=== PATIENT | male | born 1965 | race Hispanic/Latino ===

== ENCOUNTER 2016-11-19 07:40 | Day surgery (SDC) | payer MEDICARE ==
[~2016-11-19 07:40] MED LIST: ANCEF/STERILE WATER 2 GM/20 ML 2 GM/20 ML SYRINGE IV NR; NACL 0.9% 1000 ML 1,000 ML ONE; NACL BACTERIOSTATIC INFILTRATI ONE
[2016-11-19] MEDS ORDERED: HEPARIN 10,000 UNITS/10 ML ONE (08:05)
[2016-11-19] MEDS ORDERED: MARCAINE 0.5% INFILTRATI ONE ×3 (08:05→09:37)
[2016-11-19] MEDS ORDERED: XYLOCAINE 1%/ EPI 1:100,000 INFILTRATI ONE (08:05)
[2016-11-19] MEDS ORDERED: NACL 0.9% 1000 ML 1,000 ML ONE (08:05)
[2016-11-19] MEDS ORDERED: NACL 0.9% 500 ML 500 ML ONE (08:05)
[2016-11-19] MEDS ORDERED: PROTAMINE SULFATE ONE (08:06)
[2016-11-19] MEDS ORDERED: SODIUM BICARBONATE ONE (08:06)
[2016-11-19] MEDS ORDERED: NITROGLYCERIN SYRINGE 6 ML ONE (08:06)
--- NOTE | 2016-11-19 08:13 | Anesthesia Consultation ---
Anesthesia Consult and Med Hx Date of service: 11/19/16 - Airway Anesthetic Teeth Evaluation: Poor ROM Head & Neck: Adequate Mental/Hyoid Distance: Adequate Mallampati Class: Class I Intubation Access Assessment: Good - Pulmonary Exam CTA: Yes - Cardiac Exam Cardiac Exam: RRR - Pre-Operative Health Status ASA Pre-Surgery Classification: ASA4 Proposed Anesthetic Plan: General - Pulmonary Hx Sleep Apnea: Yes (15 YRS AGO HAD SURGERY NO LONGER NEEDS CPAP) - Cardiovascular System Hx Hypertension: Yes (20YRS) - Endocrine Hx End Stage Renal Disease: Yes Hx Hypothyroidism: Yes (10 YRS) - Other Systems Hx Obesity: Yes (BMI>40) - Additional Comments Anesthesia Medical History Comments: One kidney removed, other is low functioning. No previous anesthesia complications. Poor dentition.
[2016-11-19] MEDS ORDERED: DIPRIVAN 10 MG/ML IV ONE (08:16)
[2016-11-19] MEDS ORDERED: ROBINUL ONE ×2 (08:17→10:11)
[2016-11-19] MEDS ORDERED: XYLOCAINE MPF 2% ONE (08:17)
[2016-11-19] MEDS ORDERED: DILAUDID ONE ×2 (08:17→09:20)
[2016-11-19] MEDS ORDERED: ZOFRAN ONE (08:17)
[2016-11-19] MEDS ORDERED: DECADRON ONE (08:17)
--- NOTE | 2016-11-19 08:17 | Anesthesia Day of Surgery ---
Anesthesia Day of Surgery - Day of Surgery Patient Examined: Yes Patient H&P Reviewed: Yes Patient is NPO: Yes
[2016-11-19] MEDS ORDERED: VERSED IV PRN (08:18)
[2016-11-19] MEDS ORDERED: HEPARIN 10,000 UNITS/10 ML 2,000 UNIT in NACL 0.9% 500 ML 500 ML IR ONE (08:49)
[2016-11-19] MEDS ORDERED: PEPCID IV NR (09:00)
[2016-11-19] MEDS ORDERED: NACL 0.9% 1000 ML 1,000 ML IV SCH (09:00)
[2016-11-19] MEDS ORDERED: VERSED IV ONE (09:19)
[2016-11-19] MEDS ORDERED: ZEMURON IV ONE (09:28)
[2016-11-19] MEDS ORDERED: NACL 0.9% IR ONE (09:37)
[2016-11-19] MEDS ORDERED: NEO SYNEPHRINE ONE (09:48)
[2016-11-19] MEDS ORDERED: NACL 0.9% 100 ML ONE (09:48)
--- NOTE | 2016-11-19 10:08 | Short Stay Summary ---
Short Stay Documentation Date of service: 11/19/16 Narrative H&P: See H&P - History H&P: obtained from office - Allergies and Medications Current Medications: Allergies Sulfa (Sulfonamide Antibiotics) Allergy (Verified 11/18/16 09:43) Rash Home Medications Medication Instructions Recorded Confirmed Last Taken Type Allopurinol [Zyloprim] 100 mg PO QDAY 11/18/16 11/19/16 11/17/16 08:00 History Aspirin [Adult Low Dose Aspirin EC] 81 mg PO QDAY 11/18/16 11/19/16 11/18/16 20: 00 History AtorvaSTATin [Lipitor] 20 mg PO QDAY 11/18/16 11/19/16 11/18/16 20:00 History Cholecalciferol (Vitamin D3) 5,000 unit PO QDAY 11/18/16 11/19/16 11/18/16 08: 00 History [Vitamin D3] Furosemide [Lasix] 20 mg PO QDAY 11/18/16 11/19/16 11/18/16 08:00 History Insulin Lispro Prot/Lispro 60 unit SQ BID 11/18/16 11/19/16 11/18/16 20:00 History [HumaLOG MIX 75/25] Levothyroxine [Synthroid] 200 mcg PO QAM 11/18/16 11/19/16 11/18/16 08:00 History Lisinopril [Zestril TAB] 30 mg PO QDAY 11/18/16 11/19/16 11/19/16 05:00 History Loratadine [Claritin] 10 mg PO DAILY 11/18/16 11/18/16 Unknown History Toujeo Solostar 50 units SUB-Q DAILY 11/19/16 11/19/16 11/18/16 20:00 History Active Medications Famotidine (Pepcid) 20 mg IV PREOP NR Stop: 11/19/16 23:59 Last Admin: 11/19/16 08:41 Dose: 20 mg Cefazolin Sodium (Ancef/Sterile Water 2 Gm/20 Ml) 2 gm in 20 mls @ 80 mls/hr IV PREOP NR PRN Reason: Protocol Stop: 11/19/16 23:59 Sodium Chloride (Nacl 0.9% 1000 Ml) 1,000 mls @ 42 mls/hr IV DIRECT GLADYS Stop: 11/19/16 23:59 Last Admin: 11/19/16 08:20 Dose: 42 mls/hr Midazolam HCl (Versed) 2 mg IV PREOP PRN PRN Reason: Agitation Stop: 11/19/16 23:59 Last Admin: 11/19/16 08:43 Dose: 2 mg - Brief post op/procedure progress note Date of procedure: 11/19/16 Pre-op diagnosis: Chronic Renal Failure Post-op diagnosis: same Procedure: Creation of Left Emmett Fistula Anesthesia: GETA Surgeon: RUBY CHIN Estimated blood loss: none Pathology: none Condition: stable - Disposition Condition at discharge: Good Disposition: DISCHARGED TO HOME OR SELFCARE Short Stay Discharge Plan Activity: other (No heavy lifting with left arm) Wound: open to air, keep clean and dry, other (Okay to wash the wound with soap and water but do not soak in water) Follow up with: RUBY CHIN MD [Staff Physician] - 14 Days Prescriptions: HYDROcodone/APAP 7.5-325 [[place] 7.5/325] 1 each PO Q6HR PRN #50 tablet PRN Reason: Pain
[2016-11-19] MEDS ORDERED: NEOSTIGMINE ONE (10:11)
--- NOTE | 2016-11-19 10:11 | Operative Report ---
Operative Report Operative Report: Date of procedure: 11/19/2016 Pre-operative diagnosis: Chronic Renal Insufficiency Post-operative diagnosis: Same Procedure(s): Creation of Left Emmett Fistula Surgeon: Evens Ortega MD Concrete Crusher Loader Operator: None Anesthesia: General Endotracheal Anesthesia EBL: Minimal Counts: Correct Complications: None Condition: Stable Findings: Successful creation of left arm AV fistula Specimen: None Indication: The patient is a 50-year-old male with a history of chronic renal insufficiency not yet on dialysis. He is in need of long-term dialysis access to avoid the placement of a catheter. His vein size and demonstrated he was adequate candidate for fistula creation. He was given the risks, benefits, and alternative procedures and consented to procedure. Description of Procedure: The patient was brought to the operating room and laid in supine position after general endotracheal anesthesia was achieved his left arm was prepped and draped in normal sterile fashion. Longitudinal incision was then created on the distal wrist centered over the cephalic vein and a second incision was created in longitudinal fashion over the radial artery. The radial artery was dissected out circumferentially and controlled with vessel loops. The cephalic vein was then dissected out circumferentially, ligating side branches and dividing them, and then a tunnel was created to transpose it over to the radial artery. A 3 Arcelia was then advanced through the cephalic vein proximally to ensure patency. The vein was then flushed with heparinized saline and control of the bulldog clamp. The radial artery vessel loops were put on tension occluding flow, and then an 11 blade and Cannon scissors used to create an arteriotomy. An end-to-side anastomosis created between the cephalic vein and the radial artery using a single 6-0 Prolene in running fashion. Prior to completing the anastomosis I flushed the artery both retrograde and antegrade and advanced a 3 Arcelia into the proximal portion of the artery to break the spasm. I then completed the anastomosis and removed all clamps allowing flow into the fistula which had an excellent thrill. The necessity wound using half percent Marcaine plain. Then closed the wounds in 2 layers using a 3-0 Vicryl running fashion the deep dermal layer, 4-0 Monocryl in a running fashion the subcuticular layer, and Surgicel as a dressing. The patient tolerated the procedure well, all sponge needle asthma counts correct, the patient was taken to recovery in stable condition.
--- NOTE | 2016-11-19 11:18 | Post Anesthesia Evaluation ---
- Post Anesthesia Evaluation Patient Participated: Yes Airway Patent: Yes Stable Respiratory Function: Yes Nausea/Vomiting: No Temp > 96.8F: Yes Pain Manageable: Yes Adequeate Hydration: Yes Anesthesia Complications: No
[2016-11-19 12:55] VITALS: BP 132/80
== END 2016-11-19 12:49 | disposition home or self-care (01) ==
LOC: OR 07:40
PROVIDERS: ATTEND Surgery Vascular Surgery
DX: I12.0 Hypertensive chronic kidney disease with stage 5 chronic kidney disease or end stage renal disease (principal); N18.6 End stage renal disease; E03.9 Hypothyroidism, unspecified; E66.9 Obesity, unspecified; Z68.41 Body mass index [BMI] 40.0-44.9, adult; Z90.5 Acquired absence of kidney; Z79.899 Other long term (current) drug therapy
CPT/HCPCS: 36415; 36821; 82962; 84132; C1757; J0690; J1170; J1644; J2250; J2370; J2405; J2704; J2710; J2720; J7030; J7040; J1100; J1815

== ENCOUNTER 2021-01-05 11:26 | Day surgery (SDC) | payer MEDICARE ==
[2021-01-05 13:16] LABS: Hematocrit 33.8 % (35.5-45.6); Hemoglobin 11.8 gm/dl (11.8-15.2); Mean Corpuscular HGB Conc 35 % (32-34); Mean Corpuscular Volume 102 fl (84-94); Platelet Count 242 K/mm3 (140-440); Red Blood Count 3.32 M/mm3 (3.65-5.03); Red Cell Distribution Width 13.3 % (13.2-15.2)
[2021-01-05 13:33] LABS: INR 0.89 (0.87-1.13); Partial Thromboplastin Time 26.2 Sec. (24.2-36.6)
[2021-01-05] MEDS ORDERED: SODIUM CHLORIDE 0.9% 500 ML 500 ML IV SCH (14:00)
[2021-01-05 15:39] LABS: Calcium 11.2 mg/dL (8.4-10.2)
[2021-01-05] MEDS ORDERED: MIDAZOLAM 2 MG/2 ML INJ ONE (16:43)
[2021-01-05] MEDS ORDERED: HEPARIN/NS 5000 UNIT/500ML 1,500 ML IR ONE (16:44)
[2021-01-05] MEDS ORDERED: HEPARIN 10,000 UNITS/10 ML VIAL ONE (16:44)
[2021-01-05] MEDS ORDERED: fentaNYL 100 MCG/2 ML INJ ONE (16:44)
[2021-01-05] MEDS ORDERED: SODIUM CHLORIDE 0.9% 500 ML 0 ML ONE (16:45)
[2021-01-05] MEDS ORDERED: LIDOCAINE (2%) 20 MG/1 ML VIAL 20 ML MDV INFILTRATI ONE (16:45)
[2021-01-05] MEDS ORDERED: SODIUM CHLORIDE 0.9% 500 ML 500 ML ONE (17:03)
[2021-01-05] MEDS ORDERED: ceFAZolin/Water 2 GM/20 ML 2 GM/20 ML SYRINGE IV ONE (17:24)
--- NOTE | 2021-01-05 17:49 | Short Stay Summary ---
Short Stay Documentation Date of service: 01/05/21 Narrative H&P: The patient is a 55-year-old male with a history of end-stage renal disease who is on hemodialysis through a left brachiocephalic arteriovenous fistula. He presents with complaints of pulling clots while on dialysis. He has no additional complaints at this time. He is in need of a diagnostic fistulogram with possible intervention. He has been given the risk, benefits, and alternative procedures and consented to the procedure. - History Past Medical History: diabetes, dialysis, ESRD, hypertension, hyperlipidemia, PVD Past Surgical History: Other (Creation of left brachiocephalic arteriovenous fistula, endovascular intervention of peripheral vascular disease) Social history: , lives with family - Allergies and Medications Current Medications: Allergies Sulfa (Sulfonamide Antibiotics) Allergy (Verified 11/18/16 09:43) Rash Home Medications Medication Instructions Recorded Confirmed Last Taken Type Aspirin [Adult Low Dose Aspirin EC] 162 mg PO QDAY 11/18/16 01/05/21 1 Day Ago History ~01/04/21 Insulin Lispro Prot/Lispro 30 unit SQ BID 11/18/16 01/05/21 1 Day Ago History [HumaLOG Mix 75/25 Vial] ~01/04/21 Levothyroxine (Nf) [Synthroid (Nf)] 200 mcg PO QAM 11/18/16 01/05/21 1 Day Ago History ~01/04/21 200 mcg HYDROcodone/APAP 7.5-325 [[place] 1 each PO Q6HR PRN #50 tablet 11/19/16 01/05/21 Unknown Rx 7.5/325] Toujeo Solostar 45 units SUB-Q BIDAC 11/19/16 01/05/21 1 Day Ago History ~01/04/21 Gabapentin [Neurontin] 300 mg PO BID 01/05/21 01/05/21 1 Day Ago History ~01/04/21 Losartan [Cozaar] 100 mg PO QDAY 01/05/21 01/05/21 1 Day Ago History ~01/04/21 Sevelamer Carbonate [Renvela] 800 mg PO TIDWM 01/05/21 01/05/21 1 Day Ago History ~01/04/21 amLODIPine [Norvasc] 5 mg PO DAILY 01/05/21 01/05/21 1 Day Ago History ~01/04/21 Active Medications Sodium Chloride (Nacl 0.9% 500 Ml) 500 mls @ 50 mls/hr IV DIRECT GLADYS - Physical exam General appearance: no acute distress Lungs: Normal air movement Breasts: deferred Heart: Regular rate Male Genitourinary: deferred Rectal Exam: deferred Extremities: no ischemia, abnormal (Left arm AV fistula with palpable thrill) - Brief post op/procedure progress note Date of procedure: 01/12/21 Pre-op diagnosis: Complications of Dialysis Access Post-op diagnosis: same Procedure: 1. Access Left Arm AV Fistula with 7 Mongolian Sheath Venous 2. Diagnostic Fistulogram with Central Venogram 3. Angioplasty of Left Arm AV Fistula with 9 x 40 EverCross Balloon 4. Radiologic Supervision with Interpretation 5. Monitored Moderate Sedation (Total Anesthesia Time: 15 Minutes) Anesthesia: local, other (Monitored Moderate Sedation) Surgeon: RUBY CHIN Estimated blood loss: minimal Pathology: none Condition: stable - Disposition Condition at discharge: Good Disposition: DC-01 TO HOME OR SELFCARE Short Stay Discharge Plan Activity: other (Okay to use fistula for dialysis during next session) Wound: remove dressing (During next dialysis session), other (Remove the sutures by pulling the longer of the 2 strings during your next dialysis session.)
--- NOTE | 2021-01-05 17:55 | Operative Report ---
Operative Report Operative Report: Date of Procedure: 01/05/2021 Pre-operative Diagnosis: Complications of Dialysis Access Post-operative Diagnosis: Same Procedure(s): 1. Access Left Arm AV Fistula with 7 [place] African Sheath Venous 2. Diagnostic Fistulogram with Central Venogram 3. Angioplasty of Left Arm AV Fistula with 9 x 40 EverCross Balloon 4. Radiologic Supervision with Interpretation 5. Monitored Moderate Sedation (Total Anesthesia Time: 15 Minutes) Surgeon: Evens Ortega M.D. Car Seat Upholsterer: None Anesthesia: Monitored Moderate Sedation Total Anesthesia Time: 15 Minutes EBL: Minimal Counts: Correct Complications: None Condition: Stable Specimen: None Indication: The patient is a 55-year-old male with a history of end-stage renal disease who is currently on hemodialysis through a left brachiocephalic arteriovenous fistula. He presented with complaints of pulling clots from dialysis and is in need of a diagnostic fistulogram with possible intervention. He has been given the risk, benefits, and alternative procedures and consented to the procedure. Angiographic Findings: The diagnostic fistulogram revealed that the cannulation area of the fistula was patent without evidence of flow-limiting stenosis. The arterial inflow and cannulation zone is diffusely dilated without pseudoaneurysm formation. There is a short segment 75% stenosis in the cephalic arch just proximal to a stent that was previously placed. The stent was patent without significant flow- limiting stenosis. The central venous system was patent without evidence of flow-limiting stenosis. After intervention there was less than 15% residual stenosis. Description of Procedure: The patient was brought to the Ground Surveillance Systems Operator and laid in supine position. After timeout was performed his left arm was prepped and draped in normal sterile fashion. Lidocaine was used to anesthetize the skin and soft tissue overlying the fistula near the arterial inflow and a 21-gauge micropuncture needle was used to access the fistula towards the venous outflow. A 0.018 micropuncture wire was advanced to the fistula and after removing the needle a 7 [place] sheath was placed by Seldinger technique. A diagnostic fistulogram with central venogram was performed with the previously described findings. A 0.035 Bentson wire was advanced into the central venous system and angioplasty of the stenosis within the cephalic arch was performed with a 9 x 40 EverCross Balloon with a result of less than 15% residual stenosis. At that point the balloon and wire w ere removed and a 2-0 Ethilon in slipknot fashion was used to close the entry site after removing the sheath. A sterile dressing was then applied to the entry site and the patient was transported to the recovery area in stable condition.
[2021-01-05 19:11] VITALS: BP 131/74
== END 2021-01-05 19:05 | disposition home or self-care (01) ==
LOC: CATH 11:26 → CATHLABREC 11:26
PROVIDERS: ATTEND Surgery Vascular Surgery
DX: T82.898A Other specified complication of vascular prosthetic devices, implants and grafts, initial encounter (principal); T82.858A Stenosis of other vascular prosthetic devices, implants and grafts, initial encounter; I12.0 Hypertensive chronic kidney disease with stage 5 chronic kidney disease or end stage renal disease; E11.22 Type 2 diabetes mellitus with diabetic chronic kidney disease; N18.6 End stage renal disease; E78.5 Hyperlipidemia, unspecified; E11.51 Type 2 diabetes mellitus with diabetic peripheral angiopathy without gangrene; E03.9 Hypothyroidism, unspecified; G47.30 Sleep apnea, unspecified; E66.9 Obesity, unspecified; Z87.442 Personal history of urinary calculi; Z90.5 Acquired absence of kidney; Z98.890 Other specified postprocedural states; Z68.41 Body mass index [BMI] 40.0-44.9, adult; Y83.8 Other surgical procedures as the cause of abnormal reaction of the patient, or of later complication, without mention of misadventure at the time of the procedure; Y92.89 Other specified places as the place of occurrence of the external cause
CPT/HCPCS: 36415; 36902; 80048; 85027; 85610; 85730; 99156; C1725; C1751; C1769; C1894; J0690; J1644; J2250; J3010; J7040; Q9967

== ENCOUNTER 2021-08-22 06:05 | Day surgery (SDC) | payer MEDICARE ==
[~2021-08-22 06:05] MED LIST changes: -ANCEF/STERILE WATER 2 GM/20 ML 2 GM/20 ML SYRINGE IV NR; +MIDAZOLAM 2 MG/2 ML INJ IV NR; -NACL 0.9% 1000 ML 1,000 ML ONE; -NACL BACTERIOSTATIC INFILTRATI ONE; +SODIUM CHLORIDE 0.9% 1000 ML 1,000 ML IV SCH; +ceFAZolin/STERILE WATER 2 GM/20 ML SYRINGE IV NR
[2021-08-22 07:00] LABS: Calcium 8.5 mg/dL (8.4-10.2)
[2021-08-22] MEDS ORDERED: HEPARIN 10,000 UNITS/10 ML VIAL ONE (07:13)
[2021-08-22] MEDS ORDERED: BUPIVACAINE/PF (0.5%) 5 MG/1 ML 30 ML VIAL INFILTRATI ONE ×2 (07:13→10:29)
[2021-08-22] MEDS ORDERED: LIDOCAINE (1%) 10 MG/1 ML VIAL 20 ML MDV ONE (07:13)
[2021-08-22] MEDS ORDERED: SODIUM CHLORIDE 0.9% 500 ML 500 ML ONE (07:14)
[2021-08-22] MEDS ORDERED: rifAMPin 600 MG VIAL ONE (07:14)
[2021-08-22] MEDS ORDERED: SODIUM CHLORIDE 0.9% 250ML 250 ML ONE (07:14)
[2021-08-22] MEDS ORDERED: HEPARIN 5,000 UNIT/1 ML VIAL ONE (07:26)
[2021-08-22 07:31] LABS: Hematocrit 40.5 % (35.5-45.6); Hemoglobin 13.1 gm/dl (11.8-15.2); Mean Corpuscular HGB Conc 32 % (32-34); Mean Corpuscular Volume 97 fl (84-94); Platelet Count 200 K/mm3 (140-440); Red Blood Count 4.19 M/mm3 (3.65-5.03)
[2021-08-22] MEDS ORDERED: ONDANSETRON 4 MG/2 ML INJ IV PRN (07:32)
[2021-08-22] MEDS ORDERED: fentaNYL 100 MCG/2 ML INJ IV PRN (07:32)
--- NOTE | 2021-08-22 07:32 | Anesthesia Day of Surgery ---
Anesthesia Day of Surgery - Day of Surgery Patient Examined: Yes Patient H&P Reviewed: Yes Patient is NPO: Yes Beta Blockers: Yes
--- NOTE | 2021-08-22 07:32 | Anesthesia Consultation ---
Anesthesia Consult and Med Hx Date of service: 08/22/21 - Airway Anesthetic Teeth Evaluation: Good ROM Head & Neck: Adequate Mental/Hyoid Distance: Adequate Mallampati Class: Class III Intubation Access Assessment: Possibly Difficult (Previous LMA 5) - Pre-Operative Health Status ASA Pre-Surgery Classification: ASA3 Proposed Anesthetic Plan: General - Pulmonary Hx Smoking: No Hx Respiratory Symptoms: Yes (COVID+ 1/14 with mild cough) Hx Sleep Apnea: Yes (s/p surgery; no longer uses CPAP) - Cardiovascular System Hx Hypertension: Yes (took antihypertensives last night) Hx Heart Attack/AMI: No Hx Percutaneous Transluminal Coronary Angioplasty (PTCA): No Hx Peripheral Vascular Disease: Yes (last ASA/plavix 08/21/21) - Central Nervous System CVA: No - Endocrine Hx End Stage Renal Disease: Yes (last HD 08/21/21) Hx Liver Disease: No Hx Insulin Dependent Diabetes: Yes Hx Hypothyroidism: Yes - Hematic Hx Anemia: Yes - Other Systems Hx Obesity: Yes (BMI>40) - Additional Comments Anesthesia Medical History Comments: No hx anesthetic complications.
[2021-08-22] MEDS ORDERED: propofoL 200 MG/20 ML VIAL IV ONE (08:07)
[2021-08-22] MEDS ORDERED: HYDROmorphone 1 MG/1 ML INJ ONE (08:07)
[2021-08-22] MEDS ORDERED: LIDOCAINE MPF (2%) 20 MG/1 ML VIAL 5 ML ONE (08:09)
[2021-08-22] MEDS ORDERED: SODIUM CHLORIDE 0.9% 500 ML IVPB IV ONE (09:03)
[2021-08-22] MEDS ORDERED: SODIUM CHLORIDE 0.9% IRR 1,500 ML BOTTLE IR ONE (09:03)
[2021-08-22] MEDS ORDERED: HEPARIN 10,000 UNITS/10 ML VIAL IV ONE (09:03)
[2021-08-22] MEDS ORDERED: rifAMPin 600 MG VIAL IV ONE (09:03)
[2021-08-22] MEDS ORDERED: SODIUM CHLORIDE 0.9% 250 ML IVPB IV ONE (09:03)
[2021-08-22] MEDS ORDERED: HEPARIN 5,000 UNIT/1 ML VIAL SUB-Q ONE (11:15)
[2021-08-22] MEDS ORDERED: ONDANSETRON 4 MG/2 ML INJ ONE (11:15)
--- NOTE | 2021-08-22 11:42 | Short Stay Summary ---
Short Stay Documentation Date of service: 08/22/21 Narrative H&P: See H&P - History H&P: obtained from office - Allergies and Medications Current Medications: Allergies Sulfa (Sulfonamide Antibiotics) Allergy (Verified 07/30/21 16:39) Rash Home Medications Medication Instructions Recorded Confirmed Last Taken Type Aspirin [Adult Low Dose Aspirin EC] 81 mg PO QDAY 11/18/16 08/22/21 08/21/21 19:00 History Insulin Lispro Prot/Lispro 0 unit SQ PRN PRN 11/18/16 07/30/21 1 Day Ago History [HumaLOG Mix 75/25 Vial] ~01/04/21 Levothyroxine (Nf) [Synthroid (Nf)] 200 mcg PO QAM 11/18/16 08/22/21 08/21/21 19:00 History Touhectoro Solostar 45 units SUB-Q HS 11/19/16 08/22/21 08/21/21 19:00 History Gabapentin 300 mg PO BID 01/05/21 08/22/21 08/21/21 19:00 History Losartan [Cozaar] 100 mg PO QDAY 01/05/21 08/22/21 08/21/21 19:00 History Sevelamer Carbonate [Renvela] 800 mg PO TIDWM 01/05/21 08/22/21 08/21/21 19:00 History amLODIPine 5 mg PO DAILY 01/05/21 08/22/21 08/21/21 19:00 History Clopidogrel [Plavix] 75 mg PO HS 07/30/21 08/22/21 08/21/21 19:00 History Ferric Citrate (Nf) [Auryxia] 210 mg PO TIDWM 07/30/21 08/22/21 08/21/21 19:00 History traMADoL [Ultram] 100 mg PO BID PRN 07/30/21 07/30/21 Unknown History Active Medications Fentanyl (Fentanyl 100 Mcg/2 Ml Inj) 50 mcg IV Q5MIN PRN PRN Reason: Pain , Severe (7-10) Stop: 08/22/21 20:00 Sodium Chloride (Nacl 0.9% 1000 Ml) 1,000 mls @ 42 mls/hr IV DIRECT GLADYS Stop: 08/22/21 23:59 Last Admin: 08/22/21 08:00 Dose: 42 mls/hr Midazolam HCl (Midazolam 2 Mg/2 Ml Inj) 2 mg IV PREOP NR Stop: 08/22/21 23:00 Ondansetron HCl (Ondansetron 4 Mg/2 Ml Inj) 4 mg IV ONCE PRN PRN Reason: Nausea And Vomiting Stop: 08/22/21 12:00 - Brief post op/procedure progress note Date of procedure: 08/22/21 Pre-op diagnosis: Complications of Dialysis Access Post-op diagnosis: same Procedure: 1. Ligation of Left Brachiocephalic Arteriovenous Fistula 2. Creation of Left Brachial Artery to Left Axillary Vein Arteriovenous Graft with 7 mm Bovine Artegraft 3. Ultrasound-Guided Access Right Internal Jugular Vein 4. Placement of 23 cm Bard Glidepath Permacath 5. Radiologic Supervision with Interpretation Anesthesia: ALEX Surgeon: RUBY CHIN Estimated blood loss: 50-100ml Pathology: none Condition: stable - Disposition Condition at discharge: Good Disposition: 01 HOME / SELF CARE / HOMELESS Short Stay Discharge Plan Activity: other (No heavy lifting with left arm for 2 weeks.) Wound: open to air, keep clean and dry, other (Okay to wash the left arm wounds with soap and water but do not soak in water for 2 weeks.) Follow up with: RUBY CHIN MD [Staff Physician] - 14 Days Prescriptions: HYDROcodone/APAP 7.5-325 [[place] 7.5/325] 1 each PO Q6HR PRN #30 tablet PRN Reason: Pain
--- NOTE | 2021-08-22 11:59 | Operative Report ---
Operative Report Operative Report: Date of Procedure: 08/22/2021 Pre-operative Diagnosis: Complications of Dialysis Access Post-operative Diagnosis: Same Procedure(s): 1. Ligation of Left Brachiocephalic Arteriovenous Fistula 2. Creation of Left Brachial Artery to Left Axillary Vein Arteriovenous Graft with 7 mm Bovine Artegraft 3. Ultrasound-Guided Access Right Internal Jugular Vein 4. Placement of 23 cm Bard Glidepath Permacath 5. Radiologic Supervision with Interpretation Surgeon: Evens Ortega M.D. Commodities Clerk: None Anesthesia: General Endotracheal Anesthesia EBL: 100 mL Counts: Correct Complications: None Condition: Stable Findings: The left arm arteriovenous graft had a palpable thrill at the completion of the case. The permacath was placed with the distal tip in the right atrium and no evidence of pneumothorax at the completion of the case. Specimen: None Indication: The patient is a 55-year-old male with a history of end-stage renal disease who was on hemodialysis through a left brachiocephalic arteriovenous fistula. 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 It is believed that the fistula may be causing high-output cardiac failure. He is in need of revision of the fistula with ligation and creation of a graft. Description of Procedure: The patient was brought to the operating room and laid in supine position. After timeout was performed his left arm was prepped and draped in normal sterile fashion. A transverse incision was created over the arterial anastomosis, of his arteriovenous fistula, and carried down to the arterial inflow of the fistula using sharp dissection. This portion of the fistula was dissected circumferentially controlled with a vessel loop. I made a longitudinal incision near the axillary crease a sharp dissection carried this down to the axillary vein. I dissected it circumferentially controlled with a vessel loop. I then created a transverse incision over the venous outflow of the fistula and carried this down to the fistula using sharp dissection. I dissected around this portion of the fistula circumferentially. I used a [place]- Wick tunneler to create a tunnel for the graft lateral to the current fistula. I pulled a 7 mm Bovine Artegraft through the tunnel and infused with heparinized saline to ensure that it was not kinked or twisted. I then systemically heparinized the patient with 3000 units of heparin IV and clamp the arterial inflow of the fistula, at a point where the fistula was normal size and not yet dilated. I then ligated the fistula, just distal to the arterial inflow, using a 2-0 silk tie. I transected the fistula in preparation of the arterial anastomosis. I put a 2-0 silk tie around the venous outflow of the fistula and note the stagnant blood, within the fistula, out of the venous outflow and then ligated the venous outflow of the fistula. I then beveled the arterial inflow o f the graft and created an end-to-end anastomosis, between the graft and the stump of fistula, using two 6-0 Prolene's in running fashion. Prior to releasing the clamp on the fistula I clamped the graft just distal to the anastomosis and released the clamp on the fistula to ensure there was hemostasis at the suture line. I then cut the venous outflow into the graft to length and beveled the end. I controlled axillary vein with a Satinsky clamp and created a venotomy using an 11 blade and Cannon scissors. I then created an end-to-side anastomosis using a 6-0 Prolene in running fashion. Prior to completing the anastomosis I flashed the venous outflow as well as the arterial inflow the fistula and reclamped both vessels. I then flushed the anastomosis with heparinized saline to clear any possible thrombus. I completed the anastomosis and then released all clamps allowing flow through the graft which had a palpable thrill. Hemostasis within each wound was controlled with manual pres sure and cautery. Once hemostasis was achieved the wounds were anesthetized with 0.5% Marcaine and closed in 2 layers using 3-0 Vicryl in running fashion the deep dermal layers and 4-0 Monocryl in running fashion the subcuticular layers and then dressed with Dermabond. The sterile field was then broken in preparation for placement of the permacath. His right neck and chest were prepped and draped in normal sterile fashion. Ultrasound was used to identify the right internal jugular vein and the overlying skin and soft tissue was anesthetized with lidocaine. An 11 blade was used to make a small stab incision and a 21-gauge micropuncture needle was used with ultrasound guidance to enter the right internal jugular vein. A 0.018 micropuncture wire was advanced into the inferior vena cava under fluoroscopy and after removing the needle the micropuncture sheath was advanced into the internal jugular vein by Seldinger technique. The wire and inner cannula were removed and a 0.035 J-wire was advanced into the inferior vena cava under direct fluoroscopic visualization. The tract was serially dilated up to a 16 Dominican peel-away safety sheath. An exit site on the chest was then chosen and the presumed tunnel was anesthetized with lidocaine. A small stab incision was made on the chest and then the permacath was connected to the tunneler and pulled antegrade through the tunnel. The J-wire and inner cannula were remove from the SafeSheath and the catheter was inserted into the safe sheath. The safe sheath was then peeled away while advancing the catheter. The catheter was positioned under fluoroscopy with the distal tip in the right atrium. Once in adequate position, both ports were aspirated, flushed, and primed with the appropriate amount of heparin. The neck incision was then closed with 4-0 Monocryl in interrupted subcuticular fashion and dressed with Dermabond. The permacath was secured in place with a 2-0 Ethilon in interrupted fashion and dressed with a sterile dressing. Final fluoroscopy demonstrated the catheter was in adequate position with the distal tip in the right atrium and no evidence of pneumothorax. The patient tolerated the procedure well. All sponge, needle, and instrument counts were correct. The patient was taken to recovery in stable condition.
--- NOTE | 2021-08-22 12:04 | Fluoroscopy Report ---
INTRAOPERATIVE FLUOROSCOPY: CENTRAL VENOUS DEVICE PLACEMENT INDICATION / CLINICAL INFORMATION: POOR VENOUS ACCESS/PERMA CATH INS. TECHNIQUE: Intraoperative spot images were obtained during the procedure. FINDINGS: Images show placement of central venous line. See operative/procedure note by performing physician for full details. Fluoroscopy Time: 0.8 minutes. Fluoroscopy Images: 2. Signer Name: Jagjit Barakat MD Signed: 08/22/2021 12:00 PM Workstation Name: [id number]
[2021-08-22 13:34] VITALS: BP 124/68
== END 2021-08-22 13:25 | disposition home or self-care (01) ==
LOC: OR 06:05
PROVIDERS: ATTEND Surgery Vascular Surgery
DX: T82.898A Other specified complication of vascular prosthetic devices, implants and grafts, initial encounter (principal); I12.0 Hypertensive chronic kidney disease with stage 5 chronic kidney disease or end stage renal disease; E11.22 Type 2 diabetes mellitus with diabetic chronic kidney disease; N18.6 End stage renal disease; E11.51 Type 2 diabetes mellitus with diabetic peripheral angiopathy without gangrene; I73.9 Peripheral vascular disease, unspecified; E03.9 Hypothyroidism, unspecified; G47.30 Sleep apnea, unspecified; D64.9 Anemia, unspecified; E66.9 Obesity, unspecified; Z20.822 Contact with and (suspected) exposure to COVID-19; Z88.2 Allergy status to sulfonamides; Z87.442 Personal history of urinary calculi; Z90.5 Acquired absence of kidney; Z79.899 Other long term (current) drug therapy; Z79.4 Long term (current) use of insulin; Z79.82 Long term (current) use of aspirin; Z98.890 Other specified postprocedural states; Z68.41 Body mass index [BMI] 40.0-44.9, adult
CPT/HCPCS: 36415; 36558; 36830; 37607; 77001; 80048; 82962; 85027; J0690; J1170; J1644; J2405; J2704; J3490; J7030; J7040; J7050; U0003; J7120; Q0162; C1750; C1768; C1769